=== PATIENT | female | born 1995 ===

== ENCOUNTER 2019-03-12 08:46 | Emergency (ER) | payer OTHER ==
[2019-03-12 08:55] VITALS: Wt 75.0 kg
[2019-03-12] MEDS ORDERED: LEXAPRO5 MG PO (08:57)
[2019-03-12 09:58] LABS: UDS - AMPHET NEGATIVE QUAL (NEGATIVE); UDS - BARB NEGATIVE QUAL (NEGATIVE); UDS - BENZO NEGATIVE QUAL (NEGATIVE); UDS - COCAINE NEGATIVE QUAL (NEGATIVE); UDS - OPIATE NEGATIVE QUAL (NEGATIVE); UDS - PCP NEGATIVE QUAL (NEGATIVE); UDS - THC POSITIVE QUAL (NEGATIVE)
[2019-03-12 11:09] VITALS: BP 109/64
== END 2019-03-12 11:10 | disposition home or self-care (01) ==
LOC: D.ER 08:46
PROVIDERS: Family Medicine
DX: F41.9 Anxiety disorder, unspecified (principal); F41.0 Panic disorder [episodic paroxysmal anxiety]